=== PATIENT | male | born 1965 | race African-American/Black ===

== ENCOUNTER 2022-01-14 08:47 | Emergency (ER) | payer MEDICAID, SELFPAY ==
[2022-01-14 09:03] VITALS: BP 153/86; PULSE 80; RESP 16; TEMP 36.7; O2SAT 97; BMI 27.1
[2022-01-14 09:13] VITALS: BP 153/86; PULSE 74; RESP 16; O2SAT 96
--- NOTE | 2022-01-14 09:14 | W.ED.NEUROSD ---
HPI - Neuro Symptoms/Deficit General: Chief Complaint: General Medical Stated Complaint: POSSIBLE CVA Time Seen by Provider: 01/14/22 08:50 Source: patient Mode of arrival: ambulatory Limitations: no limitations History of Present Illness: 56-year-old male presents emergency room via EMS. He woke up he is feeling weak on the right side last known well was around 9 last night. Patient was disoriented he had significant dysarthria as well as the right-sided weakness on arrival. Initially is not able to give much history. Patient is at [facility] as an inpatient resident. He denies any chest pain or shortness of breath. He is evasive as to the reason he is at [facility]. Onset (ago): hour(s) (24) Time: 08:47 Last Observed Normal: 21:00 Location: speech, right face, right arm and left leg History of same: Yes Severity: moderate Quality: weak, numb and tingling Relieving factors: none Exacerbating factors: none On Anticoagulants: No Associated symptoms: Deny chest pain, cough, diaphoresis, fevers/chills, headache(s), anorexia, malaise, nausea, seizures, short of breath, syncope, tingling, vertigo, vomiting or weakness Treatments Prior to Arrival: none Review of Systems Const: Denies: fever(s), chills, malaise or diaphoresis ENMT: Denies: throat pain, ear or mastoid pain, nasal discharge or nasal congestion Card: Denies: chest pain or syncope Resp: Denies: dyspnea, productive cough or non-productive cough GI: Denies: nausea or vomiting : Denies: flank pain, dysuria, urinary frequency or urinary urgency Skin/Breast: Denies: rash or pruritus Neuro: Denies: headache(s) or vertigo [facility] ED PFSH: Medical History CVA (cerebral vascular accident) HTN (hypertension) Social History Smoking and tobacco status: current every day smoker Alcohol intake: former NIH stroke score NIHSS: Level Of Consciousness - 1a: 1 Level Of Consciousness Questions - 1b: Both Correct Level Of Consciousness Commands - 1c: Both Correct Best Gaze - 2: Normal Visual [place] - 3: No Visual Loss Facial Palsy - 4: Minor Paralysis Motor Arm Right - 5: Drift Motor Arm Left - 5: No Drift Motor Leg Right - 6: Effort Against [place] Motor Leg Left - 6: No Drift Limb Ataxia - 7: Present In Two Limbs Sensory - 8: Mild To Moderate Loss Best Language - 9: No Aphasia Dysarthia - 10: Mild/Moderate Dysarthia Extinction And Inattention - 11: 0 Score: Total Score: 9 Physical Exam Const: GENERAL APPEARANCE: lethargic NUTRITIONAL APPEARANCE: obese ORIENTATION/CONSCIOUSNESS: Yes lethargic HENMT: COMMON NORMALS: normocephalic, atraumatic and hearing grossly normal bilaterally HEAD & SCALP: normocephalic and atraumatic Neck/C-Spine: COMMON NORMALS: no JVD Resp: COMMON NORMALS: normal respiratory effort, No retractions, No use of accessory muscles and clear to auscultation bilaterally AUSCULTATION: clear to auscultation bilaterally Cardio: COMMON NORMALS: no JVD, regular rate, regular rhythm and No murmurs present (Cardio) RATE: regular rate RHYTHM: regular rhythm GI: COMMON NORMALS: Soft to palpation and No hepatosplenomegaly present AUSCULTATION: Yes normoactive bowel sounds PALPATION: Yes Soft to palpation, No Tenderness to palpation present (GI), No Guarding due to palpation present (GI) and Yes No hepatosplenomegaly present Extremity: COMMON NORMALS: normal to inspection, capillary refill normal, no clubbing, cyanosis or edema, no calf tenderness and no pedal edema Neuro: SENSORIUM/ORIENTATION: Yes lethargic Skin: COMMON NORMALS: no rashes or lesions noted GENERAL SKIN EXAM: no rashes or lesions noted Course Vital Signs: Vital signs: Vital Signs Temperature 98.1 F 01/14/22 09:03 Pulse Rate 74 01/14/22 09:13 Respiratory Rate 16 01/14/22 09:13 Blood Pressure 153/86 01/14/22 09:13 Pulse Oximetry 96 01/14/22 09:13 MDM - Neuro Symptoms/Deficit Medical Decision Making Work-up was in progress and patient refused any further evaluation. He became much more awake and responsive all of his deficits resolved. I was unable to convince him otherwise expressed to my concern that he may be having a stroke and that though most of his symptoms have resolved and would now be classified as a TIA he would be at risk for further episodes. There are old infarcts on his CT of his head. He refuses and is adamant that he wants to leave and was unable to dissuade him encourage the patient to reconsider and advised him that if at any point he did want to come back we would happily see him back and complete the evaluation. Patient left AMA Medical Records I reviewed the patient's medical records. Lab Data I reviewed the patient's lab results. : 01/14/22 09:29 01/14/22: Radiology Impressions Head CT 01/14/22:15 IMPRESSION: 1. No acute intracranial hemorrhage or edema. 2. Prior infarcts in the LEFT caudate head and basal ganglia. 3. Mild cerebral atrophy and moderate small vessel ischemic changes. Laboratory Results WBC 9.5 10^3/uL (4.0-10.0) 01/14/22: RBC 7.24 10^6/uL (4.1-5.3) H 01/14/22: Hgb 16.9 g/dL (11.7-16.6) H 01/14/22: Hct 54.6 % (42.0-52.0) H 01/14/22: MCV 75.4 fl (80-94) L 01/14/22: MCH 23.3 pg (28.0-34.0) L 01/14/22: MCHC 31.0 g/dL (30.0-36.0) 01/14/22: RDW 16.7 % (12.1-15.1) H 01/14/22: Plt Count 167 10^3/cmm (130-400) 01/14/22: MPV 11.3 fL (7.4-10.4) H 01/14/22: Neut % (Auto) 71.6 % 01/14/22: Lymph % (Auto) 20.2 % 01/14/22: Dillon % (Auto) 4.8 % 01/14/22: Eos % (Auto) 2.3 % 01/14/22: Baso % (Auto) 0.4 % 01/14/22: Neut # (Auto) 6.81 10^3/uL (1.8-7.7) 01/14/22 09:29 Lymph # (Auto) 1.9 10^3/uL (0.8-4.8) 01/14/22 09: Dillon # (Auto) 0.5 10^3/uL (0.2-0.9) 01/14/22 09:29 Eos # (Auto) 0.2 10^3/uL (0.0-0.8) 01/14/22 09: Baso # (Auto) 0.0 10^3/uL (0.0-0.1) 01/14/22 09: Nucleated RBC % (auto) 0 % 01/14/22: Nucleated RBCs # 0.0 /100WBC 01/14/22: PT 12.50 SECONDS (12.1-14.9) 01/14/22 09: INR 0.91 (0.8-1.2) 01/14/22: APTT 24.0 SECONDS (23.9-36.7) 01/14/22 09:29 Sodium 141 mmol/L (136-145) 01/14/22 09: Potassium 4.0 mmol/L (3.5-5.1) 01/14/22 09: Chloride 101 mmol/L (98-107) 01/14/22 09: Carbon Dioxide 28 mmol/L (22-29) 01/14/22 09: Anion Gap 16.0 (5-19) 01/14/22 09: BUN 16 mg/dL (6-20) 01/14/22 09: Creatinine 1.0 mg/dL (0.7-1.2) 01/14/22 09: GFR Calculation 92.9 mL/min (90-130) 01/14/22: Glucose 135 mg/dL (65-115) H 01/14/22 09: POC Glucose 133 mg/dL (70-110) H 01/14/22: Calculated Osmolality 295 mOsm/kg (285-295) 01/14/22: Calcium 9.3 mg/dL (8.5-10.5) 01/14/22 09: Total Bilirubin 0.5 mg/dL (0.15-1.2) 01/14/22 09:29 AST 35 U/L (0-40) 01/14/22 09:29 ALT 83 U/L (0-41) H 01/14/22 09:29 Alkaline Phosphatase 91 IU/L (40-130) 01/14/22 09:29 Total Protein 7.3 g/dL (6.6-8.7) 01/14/22 09:29 Albumin 4.7 g/dL (3.5-5.2) 01/14/22 09:29 Globulin 2.6 g/dL (1.3-4.6) 01/14/22 09:29 Discharge Plan Discharge Patient Disposition: Left Against Medical Advice Clinical Impression: TIA (transient ischemic attack), HTN (hypertension) Condition: Stable Coding Level of Care Code ED Backend Python Developer for Moses Fwd Exam Comprehensive
--- NOTE | 2022-01-14 09:15 | CT_ITS ---
WS: [id number] CT HEAD NONCONTRAST HISTORY: Symptoms of Acute Stroke TECHNIQUE: Contiguous axial imaging performed through the brain in 2.5 mm imaging. Bone and soft tiss ue windows. Sagittal and coronal reformats reviewed. All CT scans at [facility] use at least one of these dose optimization techniques: automated exposure control; mA and/or kV adjustment per pa tient size (includes targeted exams where dose is matched to clinical indication); or iterative recon struction. DLP: 975.96 mGy-cm. COMPARISON: None available. No acute intracranial hemorrhage, midline shift or mass effect. Mild atrophy and moderate small vessel ischemic changes. There is a prior infarct involving the LEFT caudate head and the basal ganglia with encephalomalacia and extra-axial dilatation of the lateral ve ntricle. Ventricles: Normal size with no hydrocephalus. Paranasal sinuses: As visualized are clear. Mastoid air cells: Well pneumatized. Calvarium and scalp: Skull is intact with no soft tissue edema or swelling. CT/CT head wo con* [id number] IMPRESSION: 1. No acute intracranial hemorrhage or edema. 2. Prior infarcts in the LEFT caudate head and basal ganglia. 3. Mild cerebral atrophy and moderate small vessel ischemic changes.
--- NOTE | 2022-01-14 09:15 | ECG_ITS ---
[facility] Test Date: 2022-01-14 Pat Name: Adam Morales Department: Room: Gender: Male Facilities Flight Check Pilot: : 1965 Requested By: Ricky Loza Order Number: [id number] [place] MD: Rasheed Donis M.D. Measurements Intervals [place] Rate: 72 P: 67 [place]: 177 QRS: 50 QRSD: 85 T: 49 QT: 363 QTc: 397 Interpretive Statements SINUS RHYTHM POSSIBLE RIGHT VENTRICULAR CONDUCTION DELAY [RSR (QR) IN V1/V2] NONSPECIFIC T-WAVE ABNORMALITY No previous ECG available for comparison Electronically Signed On 01-14-2022 23:22:32 CDT by Rasheed Donis M.D. [email or web address]
[2022-01-14 09:35] LABS: Basophils % 0.4 %; Eosinophils # 0.2 10^3/uL (0.0-0.8); Eosinophils % 2.3 %; Hematocrit 54.6 % (42.0-52.0); Hemoglobin 16.9 g/dL (11.7-16.6); Lymphocytes # 1.9 10^3/uL (0.8-4.8); Lymphocytes % 20.2 %; Mean Corpuscular Hemoglobin 23.3 pg (28.0-34.0); Mean Corpuscular Volume 75.4 fl (80-94); Mean Platelet Volume 11.3 fL (7.4-10.4); Monocytes # 0.5 10^3/uL (0.2-0.9); Monocytes % 4.8 %; Neutrophils # 6.81 10^3/uL (1.8-7.7); Neutrophils % 71.6 %; Nucleated Red Blood Cells % 0 %; Platelet Count 167 10^3/cmm (130-400); Red Blood Count 7.24 10^6/uL (4.1-5.3); Red Cell Distribution Width 16.7 % (12.1-15.1); White Blood Count 9.5 10^3/uL (4.0-10.0)
[2022-01-14 09:57] LABS: Alanine Aminotransferase 83 U/L (0-41); Albumin Level 4.7 g/dL (3.5-5.2); Alkaline Phosphatase 91 IU/L (40-130); Aspartate Amino Transferase 35 U/L (0-40); Blood Urea Nitrogen 16 mg/dL (6-20); Calcium 9.3 mg/dL (8.5-10.5); Carbon Dioxide 28 mmol/L (22-29); Chloride 101 mmol/L (98-107); Globulin 2.6 g/dL (1.3-4.6); Glomerular Filtration Rate 92.9 mL/min (90-130); Glucose 135 mg/dL (65-115); Osmolality Calculated 295 mOsm/kg (285-295); Sodium 141 mmol/L (136-145); Total Bilirubin 0.5 mg/dL (0.15-1.2); Total Protein 7.3 g/dL (6.6-8.7)
[2022-01-14 10:03] LABS: INR 0.91 (0.8-1.2)
[2022-01-15 08:25] LABS: Glucose Point of Care 133 mg/dL (70-110)
== END 2022-01-14 10:21 | disposition left against medical advice (07) ==
PROVIDERS: Emergency Provider Family Medicine
DX: G45.9 Transient cerebral ischemic attack, unspecified (principal); F17.210 Nicotine dependence, cigarettes, uncomplicated; Z86.73 Personal history of transient ischemic attack (TIA), and cerebral infarction without residual deficits; I10 Essential (primary) hypertension; Z53.29 Procedure and treatment not carried out because of patient's decision for other reasons
CPT/HCPCS: 36416; 70450; 80053; 82962; 85025; 85610; 85730; 93005; 99283

== ENCOUNTER 2022-02-05 14:41 | Inpatient (IN) | payer MEDICAID, SELFPAY ==
[2022-02-05] VITALS (18 sets, daily range): BP systolic 114–159; BP diastolic 71–96; PULSE 77–99; RESP 12–23; TEMP 36.8–37; O2SAT 94–98
[2022-02-05 15:33] LABS: Add Urine Microscopic? NO; Charge for UA Resulting for Rev
[2022-02-05 15:40] LABS: Urine Appearance Clear (CLEAR); Urine Color Straw (Yellow); pH Urine 6 (5-7)
[2022-02-05 15:41] LABS: Bilirubin Urine Neg (Negative); Blood Urine Neg (Negative); Glucose Urine UA 4+ (Normal); Ketones Urine Negative (Negative); Leukocyte Esterase Urine Negative (Negative); Nitrate Urine Negative (Negative); Protein Urine Neg (Negative); Specific Gravity, Urine 1.005 (1.005-1.030); Urobilinogen Urine Norm (Negative)
--- NOTE | 2022-02-05 15:43 | CTR_ITS ---
PROCEDURE INFORMATION: Exam: CT Head Without Contrast Exam date and time: 02/05/2022 4:25 PM Age: 56 years old Clinical indication: Altered mental status/memory loss; Additional info: Confusion TECHNIQUE: Imaging protocol: Computed tomography of the head without contrast. Radiation optimization: All CT scans at this facility use at least one of these dose optimization techniques: automated exposure control; mA and/or kV adjustment per patient size (includes targeted exams where dose is matched to clinical indication); or iterative reconstruction. COMPARISON: CT head wo con* [id number] 01/14/2022 8:49 AM RADIATION DOSE METRICS: Total DLP (mGy-cm): 893.81 FINDINGS: Brain: There is moderate cerebral atrophy. Pre-existing areas of encephalomalacia in the left basal ganglia stable from prior. No acute brain ischemia identified. Negative for intracranial hemorrhage. No midline shift of the brain. No mass effect on the brain. [place] matter and white matter interfaces are preserved. Cerebral ventricles: No ventriculomegaly. Paranasal sinuses: Visualized sinuses are unremarkable. No fluid levels. Mastoid air cells: Visualized mastoid air cells are well aerated. Bones/joints: Unremarkable. No acute fracture. Soft tissues: Unremarkable. CT/CT head wo con* [id number] IMPRESSION: Negative for acute intracranial abnormality.
--- NOTE | 2022-02-05 16:01 | W.ED.AMS ---
Documented by User: NATA Carroll 02/07/22 08:59 HPI - Altered Mental Status General: Chief Complaint: Altered Mental Status Stated Complaint: Cant control bowels, UTI, confusion Time Seen by Provider: 02/05/22 15:58 History of Present Illness: Patient presents with stating that he urinated on himself earlier today and had a loss control of bowel x1 yesterday. Patient said he had a stroke back in 2016. Said his right side was affected. Said he Has ambulate with a walker or a cane. Denies any recent fever chills nausea or vomiting. Denies any other serious health problems. Patient states he is not diabetic. Has family history of diabetes. Has had increased thirst and urination. Patient denies any neurological changes. Associated symptoms: Deny depression Review of Systems Narrative: CVA back 2016. No new neurological symptoms. Const: Denies: fever(s) or chills Eyes: Reports: blurry vision (Intermittent); Denies: eye discomfort ENMT: Denies: throat pain Card: Denies: chest pain or dyspnea on exertion Resp: Denies: dyspnea or non-productive cough GI: Reports: abdominal pain and other (Said he was incontinent urine and stool x1 yesterday and today.) : Reports: urinary frequency and urinary dribbling; Denies: difficulty urinating Musc: Denies: joint pain Skin/Breast: Denies: rash Neuro: Denies: headache(s) Psych: Denies: anxiety or depression Adrian/Lymph: Denies: easy bruising or enlarged lymph nodes [facility] ED PFSH: Medical History CVA (cerebral vascular accident) HTN (hypertension) Social History Smoking and tobacco status: current every day smoker Alcohol intake: former Physical Exam Const: COMMON NORMALS: no acute distress, average body habitus and patient oriented x3 OTHER: Patient is able to converse freely with me and answer all questions appropriately Eye: COMMON NORMALS: Equal, round and reactive pupils present PUPIL: Yes Equal, round and reactive pupils present Resp: COMMON NORMALS: normal respiratory effort Cardio: COMMON NORMALS: regular rate and regular rhythm RATE: regular rate RHYTHM: regular rhythm Neuro: COMMON NORMALS: patient oriented x3 SPEECH: speech normal Psych: COMMON NORMALS: mental status grossly normal Course Vital Signs: Vital signs: Vital Signs Temperature 98.6 F 02/05/22 20:00 Pulse Rate 90 02/06/22 13:37 Respiratory Rate 15 02/06/22 13:30 Blood Pressure 136/90 02/06/22 13:30 Pulse Oximetry 96 02/06/22 13:37 MDM - Altered Mental Status Medical Decision Making transfer care to Dr. Castellanos after discussion Lab Data : 02/05/22 16:05 02/06/22 05:[address] 02/05/22 15:43 IMPRESSION: Negative for acute intracranial abnormality. Laboratory Results WBC 8.8 10^3/uL (4.0-10.0) 02/05/22 16:05 RBC 6.93 10^6/uL (4.1-5.3) H 02/05/22 16:05 Hgb 16.0 g/dL (11.7-16.6) 02/05/22 16:05 Hct 51.8 % (42.0-52.0) 02/05/22 16:05 MCV 74.7 fl (80-94) L 02/05/22 16:05 MCH 23.1 pg (28.0-34.0) L 02/05/22 16:05 MCHC 30.9 g/dL (30.0-36.0) 02/05/22 16:05 RDW 15.2 % (12.1-15.1) H 02/05/22 16:05 Plt Count 223 10^3/cmm (130-400) 02/05/22 16:05 MPV 11.8 fL (7.4-10.4) H 02/05/22 16:05 Neut % (Auto) 70.7 % 02/05/22 16:05 Lymph % (Auto) 21.1 % 02/05/22 16:05 Blount % (Auto) 5.5 % 02/05/22 16:05 Eos % (Auto) 1.9 % 02/05/22 16:05 Baso % (Auto) 0.5 % 02/05/22 16:05 Neut # (Auto) 6.19 10^3/uL (1.8-7.7) 02/05/22 16:05 Lymph # (Auto) 1.9 10^3/uL (0.8-4.8) 02/05/22 16:05 Blount # (Auto) 0.5 10^3/uL (0.2-0.9) 02/05/22 16:05 Eos # (Auto) 0.2 10^3/uL (0.0-0.8) 02/05/22 16:05 Baso # (Auto) 0.0 10^3/uL (0.0-0.1) 02/05/22 16:05 Nucleated RBC % (auto) 0 % 02/05/22 16:05 Nucleated RBCs # 0.0 /100WBC 02/05/22 16:05 Specimen Type Arterial 02/05/22 17:10 Sample Site Radial, right 02/05/22 17:10 ABG pH 7.41 (7.35-7.45) 02/05/22 17:10 ABG pCO2 38.2 mmHg (35-45) 02/05/22 17:10 ABG pO2 82.8 mmHg (80.0-100.0) 02/05/22 17:10 ABG HCO3 24.4 mmol/L (22-26) 02/05/22 17:10 ABG Base Excess 0.1 mmol/L (-2.0-2.0) 02/05/22 17:10 Rosendo Test Pos 02/05/22 17:10 Hematocrit 51.6 % (42-52) 02/05/22 17:10 O2 Delivery Device Nc 02/05/22 17:10 O2 Liters/Min 2.0 % 02/05/22 17:10 Outdoor Power Equipment Mechanic ID Stephane 02/05/22 17:10 Sodium 126 mmol/L (136-145) L 02/05/22 16:05 Potassium 5.1 mmol/L (3.5-5.1) 02/05/22 16:05 Chloride 89 mmol/L (98-107) L 02/05/22 16:05 Carbon Dioxide 21 mmol/L (22-29) L 02/05/22 16:05 Anion Gap 21.1 (5-19) H 02/05/22 16:05 BUN 24 mg/dL (6-20) H 02/05/22 16:05 Creatinine 1.4 mg/dL (0.7-1.2) H 02/05/22 16:05 GFR Calculation 63.0 mL/min (90-130) L 02/05/22 16:05 Glucose 814 mg/dL (65-115) H* 02/05/22 16:05 Serum Osmolality 311 mOsm/kg (278-305) H 02/05/22 17:11 Calculated Osmolality 306 mOsm/kg (285-295) H 02/05/22 16:05 Lactic Acid 2.5 mmol/L (0.5-2.2) H 02/05/22 17:11 Calcium 9.6 mg/dL (8.5-10.5) 02/05/22 16:05 Magnesium 2.4 mg/dL (1.7-2.3) H 02/05/22 16:05 Total Bilirubin 0.4 mg/dL (0.15-1.2) 02/05/22 16:05 AST 22 U/L (0-40) 02/05/22 16:05 ALT 37 U/L (0-41) 02/05/22 16:05 Alkaline Phosphatase 160 IU/L (40-130) H 02/05/22 16:05 Total Protein 7.5 g/dL (6.6-8.7) 02/05/22 16:05 Albumin 4.4 g/dL (3.5-5.2) 02/05/22 16:05 Globulin 3.1 g/dL (1.3-4.6) 02/05/22 16:05 TSH 1.20 uIU/mL (0.27-4.20) 02/05/22 16:05 Urine Color Straw (Yellow) 02/05/22 15:17 Urine Appearance Clear (CLEAR) 02/05/22 15:17 Urine pH 6 (5-7) 02/05/22 15:17 Ur Specific Leola 1.005 (1.005-1.030) 02/05/22 15:17 Urine Protein Neg (Negative) 02/05/22 15:17 Urine Glucose (UA) 4+ (Normal) H 02/05/22 15:17 Urine Ketones Negative (Negative) 02/05/22 15:17 Urine Blood Neg (Negative) 02/05/22 15:17 Urine Nitrate Negative (Negative) 02/05/22 15:17 Urine Bilirubin Neg (Negative) 02/05/22 15:17 Urine Urobilinogen Norm mg/dL (Negative) 02/05/22 15:17 Ur Leukocyte Esterase Negative (Negative) 02/05/22 15:17 Serum Ketones Negative (Negative) 02/05/22 17:11 Discharge Plan Discharge Patient Disposition: Admitted As Inpatient Admit Provider: Michael Mckenzie Clinical Impression: Diabetes mellitus, new onset, Hyperglycemia Condition: Stable Discharge Diet: Diabetic Discharge Activity: Resume usual activity Sign Out Sign Out Data: Patient Sign Out occurred on 02/05/22 at 16:56. Patient's care was discussed, and care was transferred from to Fox Castellanos MD. Coding Level of Care Code ED Drum Attendant for Chg Fwd Exam Detailed Documented by User: Fox Castellanos MD 02/10/22 03:04 HPI - Altered Mental Status General: Chief Complaint: Altered Mental Status Stated Complaint: Cant control bowels, UTI, confusion Time Seen by Provider: 02/05/22 15:58 PFSH ED PFSH: Medical History CVA (cerebral vascular accident) HTN (hypertension) Social History Smoking and tobacco status: current every day smoker Alcohol intake: former Course Vital Signs: Vital signs: Vital Signs Temperature 98.6 F 02/05/22 20:00 Pulse Rate 90 02/06/22 13:37 Respiratory Rate 15 02/06/22 13:30 Blood Pressure 136/90 02/06/22 13:30 Pulse Oximetry 96 02/06/22 13:37 MDM - Altered Mental Status Medical Decision Making transfer care to Dr. Castellanos after discussion Patient discussed with Aniceot Martin SHOE SALESMAN. I have reviewed documentation. I reperformed simpson portions of E/M and personally reevaluated the patient. In summary 56-year-old gentleman apparently with new onset severe hyperglycemia concerning for HHS. Initiated on IV fluids and insulin drip. Admitted to ICU for further management. Fox Castellanos MD Emergency Medicine Lab Data : 02/05/22 16:05 02/06/22 05:[address] 02/05/22 15:43 IMPRESSION: Negative for acute intracranial abnormality. Laboratory Results WBC 8.8 10^3/uL (4.0-10.0) 02/05/22 16:05 RBC 6.93 10^6/uL (4.1-5.3) H 02/05/22 16:05 Hgb 16.0 g/dL (11.7-16.6) 02/05/22 16:05 Hct 51.8 % (42.0-52.0) 02/05/22 16:05 MCV 74.7 fl (80-94) L 02/05/22 16:05 MCH 23.1 pg (28.0-34.0) L 02/05/22 16:05 MCHC 30.9 g/dL (30.0-36.0) 02/05/22 16:05 RDW 15.2 % (12.1-15.1) H 02/05/22 16:05 Plt Count 223 10^3/cmm (130-400) 02/05/22 16:05 MPV 11.8 fL (7.4-10.4) H 02/05/22 16:05 Neut % (Auto) 70.7 % 02/05/22 16:05 Lymph % (Auto) 21.1 % 02/05/22 16:05 Blount % (Auto) 5.5 % 02/05/22 16:05 Eos % (Auto) 1.9 % 02/05/22 16:05 Baso % (Auto) 0.5 % 02/05/22 16:05 Neut # (Auto) 6.19 10^3/uL (1.8-7.7) 02/05/22 16:05 Lymph # (Auto) 1.9 10^3/uL (0.8-4.8) 02/05/22 16:05 Blount # (Auto) 0.5 10^3/uL (0.2-0.9) 02/05/22 16:05 Eos # (Auto) 0.2 10^3/uL (0.0-0.8) 02/05/22 16:05 Baso # (Auto) 0.0 10^3/uL (0.0-0.1) 02/05/22 16:05 Nucleated RBC % (auto) 0 % 02/05/22 16:05 Nucleated RBCs # 0.0 /100WBC 02/05/22 16:05 Specimen Type Arterial 02/05/22 17:10 Sample Site Radial, right 02/05/22 17:10 ABG pH 7.41 (7.35-7.45) 02/05/22 17:10 ABG pCO2 38.2 mmHg (35-45) 02/05/22 17:10 ABG pO2 82.8 mmHg (80.0-100.0) 02/05/22 17:10 ABG HCO3 24.4 mmol/L (22-26) 02/05/22 17:10 ABG Base Excess 0.1 mmol/L (-2.0-2.0) 02/05/22 17:10 Rosendo Test Pos 02/05/22 17:10 Hematocrit 51.6 % (42-52) 02/05/22 17:10 O2 Delivery Device Nc 02/05/22 17:10 O2 Liters/Min 2.0 % 02/05/22 17:10 Outdoor Power Equipment Mechanic ID Stephane 02/05/22 17:10 Sodium 126 mmol/L (136-145) L 02/05/22 16:05 Potassium 5.1 mmol/L (3.5-5.1) 02/05/22 16:05 Chloride 89 mmol/L (98-107) L 02/05/22 16:05 Carbon Dioxide 21 mmol/L (22-29) L 02/05/22 16:05 Anion Gap 21.1 (5-19) H 02/05/22 16:05 BUN 24 mg/dL (6-20) H 02/05/22 16:05 Creatinine 1.4 mg/dL (0.7-1.2) H 02/05/22 16:05 GFR Calculation 63.0 mL/min (90-130) L 02/05/22 16:05 Glucose 814 mg/dL (65-115) H* 02/05/22 16:05 Serum Osmolality 311 mOsm/kg (278-305) H 02/05/22 17:11 Calculated Osmolality 306 mOsm/kg (285-295) H 02/05/22 16:05 Lactic Acid 2.5 mmol/L (0.5-2.2) H 02/05/22 17:11 Calcium 9.6 mg/dL (8.5-10.5) 02/05/22 16:05 Magnesium 2.4 mg/dL (1.7-2.3) H 02/05/22 16:05 Total Bilirubin 0.4 mg/dL (0.15-1.2) 02/05/22 16:05 AST 22 U/L (0-40) 02/05/22 16:05 ALT 37 U/L (0-41) 02/05/22 16:05 Alkaline Phosphatase 160 IU/L (40-130) H 02/05/22 16:05 Total Protein 7.5 g/dL (6.6-8.7) 02/05/22 16:05 Albumin 4.4 g/dL (3.5-5.2) 02/05/22 16:05 Globulin 3.1 g/dL (1.3-4.6) 02/05/22 16:05 TSH 1.20 uIU/mL (0.27-4.20) 02/05/22 16:05 Urine Color Straw (Yellow) 02/05/22 15:17 Urine Appearance Clear (CLEAR) 02/05/22 15:17 Urine pH 6 (5-7) 02/05/22 15:17 Ur Specific Leola 1.005 (1.005-1.030) 02/05/22 15:17 Urine Protein Neg (Negative) 02/05/22 15:17 Urine Glucose (UA) 4+ (Normal) H 02/05/22 15:17 Urine Ketones Negative (Negative) 02/05/22 15:17 Urine Blood Neg (Negative) 02/05/22 15:17 Urine Nitrate Negative (Negative) 02/05/22 15:17 Urine Bilirubin Neg (Negative) 02/05/22 15:17 Urine Urobilinogen Norm mg/dL (Negative) 02/05/22 15:17 Ur Leukocyte Esterase Negative (Negative) 02/05/22 15:17 Serum Ketones Negative (Negative) 02/05/22 17:11 Critical Care Time Critical Care Time: Critical Care Time: Yes Total Critical Care Time: 45 Attestation: Due to a high probability of clinically significant, possibly life threatening deterioration, the patient required my highest level of attention and preparedness to intervene emergently and I personally spent this critical care time directly and personally managing the patient. This critical care time included obtaining a history; examining the patient; pulse oximetry; ordering and review of laboratory and imaging studies; arranging urgent treatment with development of a management plan; evaluation of patient's response to treatment; frequent reassessment; and, discussions with other providers as applicable. It was exclusive of separately billable procedures. Primary system involved is endocrine Discharge Plan Discharge Patient Disposition: Admitted As Inpatient Admit Provider: Michael Mckenzie Clinical Impression: Diabetes mellitus, new onset, Hyperglycemia Condition: Stable Discharge Diet: Diabetic Discharge Activity: Resume usual activity Sign Out Sign Out Data: Patient Sign Out occurred on 02/05/22 at 16:56. Patient's care was discussed, and care was transferred from to Fox Castellanos MD. Coding Level of Care Code ED Drum Attendant for Chg Fwd Exam Detailed
[2022-02-05 16:10] LABS: Basophils % 0.5 %; Eosinophils # 0.2 10^3/uL (0.0-0.8); Eosinophils % 1.9 %; Hematocrit 51.8 % (42.0-52.0); Lymphocytes # 1.9 10^3/uL (0.8-4.8); Lymphocytes % 21.1 %; Mean Corpuscular HGB Conc 30.9 g/dL (30.0-36.0); Mean Corpuscular Hemoglobin 23.1 pg (28.0-34.0); Mean Corpuscular Volume 74.7 fl (80-94); Mean Platelet Volume 11.8 fL (7.4-10.4); Monocytes # 0.5 10^3/uL (0.2-0.9); Monocytes % 5.5 %; Neutrophils # 6.19 10^3/uL (1.8-7.7); Neutrophils % 70.7 %; Nucleated Red Blood Cells % 0 %; Platelet Count 223 10^3/cmm (130-400); Red Blood Count 6.93 10^6/uL (4.1-5.3); Red Cell Distribution Width 15.2 % (12.1-15.1); White Blood Count 8.8 10^3/uL (4.0-10.0)
[2022-02-05 16:39] LABS: Alanine Aminotransferase 37 U/L (0-41); Albumin Level 4.4 g/dL (3.5-5.2); Alkaline Phosphatase 160 IU/L (40-130); Aspartate Amino Transferase 22 U/L (0-40); Blood Urea Nitrogen 24 mg/dL (6-20); Calcium 9.6 mg/dL (8.5-10.5); Carbon Dioxide 21 mmol/L (22-29); Chloride 89 mmol/L (98-107); Globulin 3.1 g/dL (1.3-4.6); Sodium 126 mmol/L (136-145); Total Bilirubin 0.4 mg/dL (0.15-1.2); Total Protein 7.5 g/dL (6.6-8.7)
[2022-02-05 16:47] LABS: Osmolality Calculated 306 mOsm/kg (285-295)
[2022-02-05 16:48] LABS: Anion Gap 21.1 (5-19); Potassium 5.1 mmol/L (3.5-5.1)
[2022-02-05 16:49] LABS: Glucose 814 mg/dL (65-115)
[2022-02-05] MEDS: sodium chloride 0.9% 1,000 ML 999 ML IV (17:07)
[2022-02-05 17:24] LABS: ABG PCO2 38.2 mmHg (35-45); ABG PH Result 7.41 (7.35-7.45); Arterial Blood Gas Hematocrit 51.6 % (42-52); Base Excess ABG 0.1 mmol/L (-2.0-2.0); Blood Gas Allen Test Pos; Blood Gas Sample Site Radial, right; Blood Gas Sample Type Arterial; HCO3 ABG 24.4 mmol/L (22-26); Oxygen Device NC; PO2 ABG 82.8 mmHg (80.0-100.0)
--- NOTE | 2022-02-05 17:48 | P.HP_ITS ---
Providers/Chief Complaint Chief Complaint: Cant control bowels, UTI, confusion History of Present Illness Adam Morales is a 56 year old male with PMH of HTN, CVA,came in with c/o that he urinated on himself earlier today and had a loss control of bowel x1 yesterday.History taking is limited as the patient is not very participative. For most part deny any chest pain,sob,fever,abdominal pain, nausea,vomiting. Upon arrival in the ER pertinent imaging studies done included: C.T Head without contrast :Negative for acute intracranial abnormality. Pertinent Labs : WBC : 8.8 H&H : 16/51 PLT : 223 , Na: 126 , k:5.1 BUN/SCR : 24/1.4 , HCO3: 21, AG : 21 , RBS: 814 , Lactic acid: 2.5 , M.4 AB.41, PCO2: 38,PO2:82 Urine Ketone :Negative. Patient was started on insulin drip in the ER. and also received 1L normal saline bolus. Review of Systems General: Reports: 10 or more systems reviewed and unremarkable except in HPI and below Narrative: ROS is limited as the patient is not very participative Const: Denies: fever(s) Card: Denies: dyspnea on exertion GI: Denies: abdominal pain, nausea, vomiting, diarrhea or constipation : Denies: flank pain Musc: Denies: back pain, extremity pain or extremity swelling Neuro: Denies: headache(s) Medications/Allergies Home Medications Medication Instructions Recorded Confirmed Last Taken Type aspirin 81 mg tablet,delayed 81 mg PO DAILY 02/05/22 02/05/22 02/05/22 History release atorvastatin 40 mg tablet 40 mg PO DAILY 02/05/22 02/05/22 02/04/22 History clopidogrel 75 mg tablet 75 mg PO DAILY 02/05/22 02/05/22 02/05/22 History diltiazem HCl 120 mg 120 mg PO DAILY 02/05/22 02/05/22 02/05/22 History capsule,extended release 24 hr gabapentin 100 mg capsule 100 mg PO BID 02/05/22 02/05/22 02/05/22 History hydrochlorothiazide 25 mg tablet 25 mg PO DAILY 02/05/22 02/05/22 02/05/22 History lisinopril 20 mg tablet 20 mg PO DAILY 0502/05/22 02/05/22 History olanzapine 10 mg tablet 10 mg PO BEDTIME 02/05/22 02/05/22 02/04/22 History tramadol 50 mg tablet 50 mg PO Q6H PRN 02/05/22 02/05/22 Unknown History venlafaxine 75 mg capsule,extended 75 mg PO DAILY 02/05/22 02/05/22 02/05/22 History release 24 hr Allergies Allergy/AdvReac Type Severity Reaction Status Date / Time No Known Allergies Allergy Verified 02/05/22 15:02 PFSH Acute PFSH: Medical History CVA (cerebral vascular accident) HTN (hypertension) Social History Smoking and tobacco status: current every day smoker Alcohol intake: former Vitals/I&O/Wt Last Vital Signs Temp 98.2 F 02/05/22 14:57 Pulse 99 02/05/22 14:57 Resp 20 H 02/05/22 14:57 BP 159/92 02/05/22 16:30 Pulse Ox 96 02/05/22 16:30 Weight last 48 hrs Weight 92.533 kg Physical Exam Narrative: NAD ,Alert,awake,oriented to self,place and knows which year is this. HENMT: COMMON NORMALS: normocephalic and atraumatic HEAD & SCALP: normocephalic and atraumatic Chest: CHEST: Yes Symmetrical chest wall rise Resp: COMMON NORMALS: clear to auscultation bilaterally EFFORT & INSPECTION: Yes symmetric chest movement AUSCULTATION: clear to auscultation bilaterally Cardio: COMMON NORMALS: regular rate, regular rhythm, S1 normal heart sound present, S2 normal heart sound present, No gallops present (Cardio), No murmurs present (Cardio), No rub (Cardio) and Peripheral pulses 2+ throughout RATE: regular rate RHYTHM: regular rhythm HEART SOUNDS: S1 normal heart sound present and S2 normal heart sound present PERIPHERAL PULSES: Peripheral pulses 2+ throughout GI: COMMON NORMALS: Normal to inspection, nondistended, normoactive bowel sounds present, Soft to palpation, non-tender, No hepatosplenomegaly present and no masses AUSCULTATION: Yes normoactive bowel sounds PALPATION: Yes Soft to palpation and Yes No hepatosplenomegaly present RECTAL EXAM: Yes deferred Extremity: COMMON NORMALS: no clubbing, cyanosis or edema and no pedal edema Data : 02/05/22 16:05 02/06/22 05:24 A&P Assessment and plan (1) HTN (hypertension): Status: Acute (2) Hyperglycemia: Status: Acute (3) Diabetes mellitus, new onset: Status: Acute Plan 56 year old male with PMH of HTN, CVA,came in with c/o that he urinated on himself earlier today and had a loss control of bowel x1 yesterday. Assessment : #Hyperglycemia : #Diabetes #KATERINA ON CKD #HTN #H/OCVA Plan : Currently on insulin drip Monitor FSG Carbohydrate Consistent diet Will transition to Basal,bolus insulin regimen Lipid panel HbA1C Continue I.V Hydration with NS @ 100 CC/HR Monitor BMP Avoid Nephrtoxics Monitor I/O Charting Random Urine Sodium Random Urine Creatinine Code Status :Full code DVT PPX: On Lovenox Attestations Medical Necessity Statement*: Patient needs to be in hospital for the manage ment of hyperglycemia.Anticipated LOS Greater then 2 midnights. Time Spent in Patient Care: Greater than 35 minutes (>than 50% of time spent in counselling and/or direct pt care on unit) . Coding Level of Care Code Acute Marketing Underwriter for Chg Fwd Exam Detailed Diagnoses HTN (hypertension) I10 Hyperglycemia R73.9 Diabetes mellitus, new onset E11.9
[2022-02-05 17:49] LABS: Lactic Sepsis W/Reflex 2.5 mmol/L (0.5-2.2)
[2022-02-05 17:51] LABS: Ketone (Acetest) Serum Negative (Negative)
[2022-02-05 17:59] LABS: Reflex Lactate Order REFLEX LACTIC ORDERD
[2022-02-05 18:06] LABS: Magnesium 2.4 mg/dL (1.7-2.3)
[2022-02-05] MEDS: gabapentin 100 mg Capsule PO (18:14)
[2022-02-05] MEDS: enoxaparin 40 mg/0.4 mL Syringe SUBCUT (18:15)
[2022-02-05 18:44] LABS: Glucose Point of Care 566 mg/dL (70-110)
--- NOTE | 2022-02-05 18:45 | PC.NURSE ---
Patient arrived to ICU from ED at 1830.
[2022-02-05] MEDS: insulin regular-human 250 UNIT in sodium chloride 0.9% 250 ML 15.9 UNIT IV (18:49)
[2022-02-05 19:48] LABS: Glucose Point of Care 333 mg/dL (70-110)
[2022-02-05] MEDS: sodium chloride 0.9% 1,000 ML 100 ML IV (19:57)
[2022-02-05 21:01] LABS: Glucose Point of Care 248 mg/dL (70-110)
[2022-02-05] MEDS: insulin lispro 100 unit/1 mL SUBCUT (21:06)
[2022-02-05] MEDS: insulin glargine 100 units/1 mL 15 UNIT SUBCUT (21:07)
[2022-02-05] MEDS: OLANZapine 10 mg TABLET PO (21:08)
[2022-02-05 21:31] LABS: Blood Urea Nitrogen 22 mg/dL (6-20); Calcium 9.8 mg/dL (8.5-10.5); Carbon Dioxide 23 mmol/L (22-29); Chloride 100 mmol/L (98-107); Glomerular Filtration Rate 83.2 mL/min (90-130); Glucose 267 mg/dL (65-115); Osmolality Calculated 295 mOsm/kg (285-295); Sodium 136 mmol/L (136-145)
[2022-02-05 21:32] LABS: Anion Gap 17.1 (5-19); Potassium 4.1 mmol/L (3.5-5.1)
[2022-02-06] VITALS (26 sets, daily range): BP systolic 105–145; BP diastolic 66–90; PULSE 73–90; RESP 11–22; O2SAT 95–99
[2022-02-06 00:30] LABS: Glucose Point of Care 289 mg/dL (70-110)
[2022-02-06 05:57] LABS: Alanine Aminotransferase 37 U/L (0-41); Albumin Level 3.9 g/dL (3.5-5.2); Alkaline Phosphatase 100 IU/L (40-130); Anion Gap 12.9 (5-19); Aspartate Amino Transferase 20 U/L (0-40); Blood Urea Nitrogen 18 mg/dL (6-20); Calcium 9.1 mg/dL (8.5-10.5); Carbon Dioxide 27 mmol/L (22-29); Chloride 102 mmol/L (98-107); Chol HDL Ratio 6.29 mg/dL (1.0-5.00); Cholesterol 176 mg/dL (0-200); Globulin 2.4 g/dL (1.3-4.6); Glomerular Filtration Rate 75.2 mL/min (90-130); Glucose 269 mg/dL (65-115); HDL Cholesterol 28 mg/dL (60-100); LDL Cholesterol Calculated 99 mg/dL (50-129); LDL HDL Ratio 3.54 RATIO (0.00-3.22); Magnesium 2.1 mg/dL (1.7-2.3); Osmolality Calculated 297 mOsm/kg (285-295); Phosphorus 3.8 mg/dL (2.5-4.5); Potassium 3.9 mmol/L (3.5-5.1); Sodium 138 mmol/L (136-145); Total Bilirubin 0.4 mg/dL (0.15-1.2); Total Protein 6.3 g/dL (6.6-8.7); Triglycerides 245 mg/dL (0-150)
[2022-02-06 06:00] LABS: Lactic Sepsis W/Reflex 1.6 mmol/L (0.5-2.2)
[2022-02-06 06:01] LABS: Estmated Average Glucose 217; Hemoglobin A1C 9.2 % (4.0-6.0)
[2022-02-06] MEDS: sodium chloride 0.9% 1,000 ML 100 ML IV (06:05)
[2022-02-06 07:33] LABS: Glucose Point of Care 265 mg/dL (70-110)
[2022-02-06] MEDS: insulin lispro 100 unit/1 mL SUBCUT ×2 (08:14→11:25)
[2022-02-06] MEDS: venlafaxine ER (24HR) 75 mg Capsule PO (08:15)
[2022-02-06] MEDS: clopidogrel 75 mg Tablet PO (08:16)
[2022-02-06] MEDS: atorvastatin 40 mg Tablet PO (08:16)
[2022-02-06] MEDS: dilTIAZem ER (24HR) 120 mg Capsule PO (08:16)
[2022-02-06] MEDS: gabapentin 100 mg Capsule PO (08:16)
[2022-02-06] MEDS: aspirin 81 mg EC Tablet PO (08:16)
[2022-02-06] MEDS: TRAMadol 50 mg Tablet PO (08:18)
--- NOTE | 2022-02-06 10:39 | PC.NURSE ---
Dr. Mckenzie at bedside, informed this nurse that metfomin will be started and patient will be discharged once arrangements are made, patient advised he need to go to [facility], social service involved
[2022-02-06 11:23] LABS: Glucose Point of Care 262 mg/dL (70-110)
--- NOTE | 2022-02-06 12:46 | PC.NURSE ---
[facility] called, received report, Dr. Mckenzie was notified and to put in discharge orders
--- NOTE | 2022-02-06 13:37 | PM.DCS ---
Discharge Providers Date of Admission: 02/05/22 17:14 Date of Discharge: February 06, 2022 Attending Provider at Admission: Michael Mckenzie MD Attending Provider at Discharge: Michael Mckenzie MD Diagnoses at Discharge Discharge Diagnosis (1) HTN (hypertension): Status: Acute (2) Hyperglycemia: Status: Acute (3) Diabetes mellitus, new onset: Status: Acute Reason for Visit Reason for Visit: Cant control bowels, UTI, confusion Hospital Course Hospital Course Adam Morales is a 56 year old male with PMH of HTN, CVA,came in with c/o? that he urinated on himself earlier today and had a loss control of bowel x1 yesterday.Further work up in the ER revealed that he is hyperglycemic he was admitted for the management of hyperglycemia and was initially placed on insulin drip,later transitioned to basal,bolus insulin. He was newly diagnosed with Diabetes during this hospital stay,HbA1C is 9.2.Patient was also found to have Pre renal KATERINA responded well to I.V Hydration.Patient is being discharged on Metformin 500 MG PO BID.He has agreed to see endocrine as outpatient for further management of disbetes. Patient responded well to above medical management and is being discharged in stable condition.He will continue to follow with his pcp as outpatient. Physical Exam Narrative: NAD ,Alert,awake,oriented to self,place and knows which year is this. Const: COMMON NORMALS: patient oriented x3 HENMT: COMMON NORMALS: normocephalic and atraumatic HEAD & SCALP: normocephalic and atraumatic Chest: CHEST: Yes Symmetrical chest wall rise Resp: COMMON NORMALS: clear to auscultation bilaterally EFFORT & INSPECTION: Yes symmetric chest movement AUSCULTATION: clear to auscultation bilaterally Cardio: COMMON NORMALS: regular rate, regular rhythm, S1 normal heart sound present, S2 normal heart sound present, No gallops present (Cardio), No murmurs present (Cardio), No rub (Cardio) and Peripheral pulses 2+ throughout RATE: regular rate RHYTHM: regular rhythm HEART SOUNDS: S1 normal heart sound present and S2 normal heart sound present PERIPHERAL PULSES: Peripheral pulses 2+ throughout GI: COMMON NORMALS: Normal to inspection, nondistended, normoactive bowel sounds present, Soft to palpation, non-tender, No hepatosplenomegaly present and no masses AUSCULTATION: Yes normoactive bowel sounds PALPATION: Yes Soft to palpation and Yes No hepatosplenomegaly present RECTAL EXAM: Yes deferred Extremity: COMMON NORMALS: no clubbing, cyanosis or edema and no pedal edema Neuro: COMMON NORMALS: patient oriented x3 Discharge Data Studies Completed and Pending Completed Studies During Hospitalization Category Date Time Status CT head wo con* [id number] Urgent Cat Scan 02/05/22 15:43 Completed Pending at discharge Category Date Time Status Comprehensive Metabolic Panel AM LABS Lab 02/07/22 04:00 Ordered Comprehensive Metabolic Panel AM LABS Lab 02/08/22 04:00 Ordered Osmolality Serum Stat Lab 02/05/22 17:11 Received Radiology Impressions Head CT 02/05/22 15:43 IMPRESSION: Negative for acute intracranial abnormality. Laboratory Results WBC 8.8 10^3/uL (4.0-10.0) 02/05/22 16:05 RBC 6.93 10^6/uL (4.1-5.3) H 02/05/22 16:05 Hgb 16.0 g/dL (11.7-16.6) 02/05/22 16:05 Hct 51.8 % (42.0-52.0) 02/05/22 16:05 MCV 74.7 fl (80-94) L 02/05/22 16:05 MCH 23.1 pg (28.0-34.0) L 02/05/22 16:05 MCHC 30.9 g/dL (30.0-36.0) 02/05/22 16:05 RDW 15.2 % (12.1-15.1) H 02/05/22 16:05 Plt Count 223 10^3/cmm (130-400) 02/05/22 16:05 MPV 11.8 fL (7.4-10.4) H 02/05/22 16:05 Neut % (Auto) 70.7 % 02/05/22 16:05 Lymph % (Auto) 21.1 % 02/05/22 16:05 [place] % (Auto) 5.5 % 02/05/22 16:05 Eos % (Auto) 1.9 % 02/05/22 16:05 Baso % (Auto) 0.5 % 02/05/22 16:05 Neut # (Auto) 6.19 10^3/uL (1.8-7.7) 02/05/22 16:05 Lymph # (Auto) 1.9 10^3/uL (0.8-4.8) 02/05/22 16:05 [place] # (Auto) 0.5 10^3/uL (0.2-0.9) 02/05/22 16:05 Eos # (Auto) 0.2 10^3/uL (0.0-0.8) 02/05/22 16:05 Baso # (Auto) 0.0 10^3/uL (0.0-0.1) 02/05/22 16:05 Nucleated RBC % (auto) 0 % 02/05/22 16:05 Nucleated RBCs # 0.0 /100WBC 02/05/22 16:05 Specimen Type Arterial 02/05/22 17:10 Sample Site Radial, right 02/05/22 17:10 ABG pH 7.41 (7.35-7.45) 02/05/22 17:10 ABG pCO2 38.2 mmHg (35-45) 02/05/22 17:10 ABG pO2 82.8 mmHg (80.0-100.0) 02/05/22 17:10 ABG HCO3 24.4 mmol/L (22-26) 02/05/22 17:10 ABG Base Excess 0.1 mmol/L (-2.0-2.0) 02/05/22 17:10 [place] Test Pos 02/05/22 17:10 Hematocrit 51.6 % (42-52) 02/05/22 17:10 O2 Delivery Device Nc 02/05/22 17:10 O2 Liters/Min 2.0 % 02/05/22 17:10 Materials Specialist ID Stephane 02/05/22 17:10 Sodium 138 mmol/L (136-145) 02/06/22 05:24 Potassium 3.9 mmol/L (3.5-5.1) 02/06/22 05:24 Chloride 102 mmol/L (98-107) 02/06/22 05:24 Carbon Dioxide 27 mmol/L (22-29) 02/06/22 05:24 Anion Gap 12.9 (5-19) 02/06/22 05:24 BUN 18 mg/dL (6-20) 02/06/22 05:24 Creatinine 1.2 mg/dL (0.7-1.2) 02/06/22 05:24 GFR Calculation 75.2 mL/min (90-130) L 02/06/22 05:24 Glucose 269 mg/dL (65-115) H 02/06/22 05:24 POC Glucose 262 mg/dL (70-110) H 02/06/22 11:20 Estimat Average Glucose 217 02/06/22 05:24 Hemoglobin A1c 9.2 % (4.0-6.0) H 02/06/22 05:24 Calculated Osmolality 297 mOsm/kg (285-295) H 02/06/22 05:24 Lactic Acid 1.6 mmol/L (0.5-2.2) 02/06/22 05:24 Lactic Acid (Sepsis) 2.0 mmol/L (0.5-2.2) 02/05/22 21:05 Calcium 9.1 mg/dL (8.5-10.5) 02/06/22 05:24 Phosphorus 3.8 mg/dL (2.5-4.5) 02/06/22 05:24 Magnesium 2.1 mg/dL (1.7-2.3) 02/06/22 05:24 Total Bilirubin 0.4 mg/dL (0.15-1.2) 02/06/22 05:24 AST 20 U/L (0-40) 02/06/22 05:24 ALT 37 U/L (0-41) 02/06/22 05:24 Alkaline Phosphatase 100 IU/L (40-130) 02/06/22 05:24 Total Protein 6.3 g/dL (6.6-8.7) L 02/06/22 05:24 Albumin 3.9 g/dL (3.5-5.2) 02/06/22 05:24 Globulin 2.4 g/dL (1.3-4.6) 02/06/22 05:24 Triglycerides 245 mg/dL (0-150) H 02/06/22 05:24 Triglycerides Cancelled 02/06/22 05:24 Cholesterol 176 mg/dL (0-200) 02/06/22 05:24 Cholesterol Cancelled 02/06/22 05:24 LDL Cholesterol, Calc 99 mg/dL (50-129) 02/06/22 05:24 LDL Cholesterol, Calc Cancelled 02/06/22 05:24 HDL Cholesterol 28 mg/dL (60-100) L 02/06/22 05:24 HDL Cholesterol Cancelled 02/06/22 05:24 LDL/HDL Ratio 3.54 RATIO (0.00-3.22) H 02/06/22 05:24 LDL/HDL Ratio Cancelled 02/06/22 05:24 Cholesterol/HDL Ratio 6.29 mg/dL (1.0-5.00) H 02/06/22 05:24 Cholesterol/HDL Ratio Cancelled 02/06/22 05:24 TSH 1.20 uIU/mL (0.27-4.20) 02/05/22 16:05 Urine Color Straw (Yellow) 02/05/22 15:17 Urine Appearance Clear (CLEAR) 02/05/22 15:17 Urine pH 6 (5-7) 02/05/22 15:17 Ur Specific [place] 1.005 (1.005-1.030) 02/05/22 15:17 Urine Protein Neg (Negative) 02/05/22 15:17 Urine Glucose (UA) 4+ (Normal) H 02/05/22 15:17 Urine Ketones Negative (Negative) 02/05/22 15:17 Urine Blood Neg (Negative) 02/05/22 15:17 Urine Nitrate Negative (Negative) 02/05/22 15:17 Urine Bilirubin Neg (Negative) 02/05/22 15:17 Urine Urobilinogen Norm mg/dL (Negative) 02/05/22 15:17 Ur Leukocyte Esterase Negative (Negative) 02/05/22 15:17 Serum Ketones Negative (Negative) 02/05/22 17:11 Vitals Last Vital Signs Temp 98.6 F 02/05/22 20:00 Pulse 83 02/06/22 13:09 Resp 12 02/06/22 13:09 BP 140/90 02/06/22 13:09 Pulse Ox 99 02/06/22 13:09 Discharge Plan Discharge Patient Disposition: Xfer Inpatient Rehab Fac Condition: Stable Prescriptions: New metformin 500 mg tablet 500 mg PO BID 30 Days Qty: 60 3RF Continued atorvastatin 40 mg tablet 40 mg PO DAILY 0RF venlafaxine 75 mg capsule,extended release 24hr 75 mg PO DAILY 0RF olanzapine 10 mg tablet 10 mg PO BEDTIME 0RF clopidogrel 75 mg tablet 75 mg PO DAILY 0RF aspirin 81 mg tablet,delayed release (DR/EC) 81 mg PO DAILY 0RF tramadol 50 mg tablet 50 mg PO Q6H PRN (Reason: Pain) 0RF diltiazem HCl 120 mg capsule,extended release 24hr 120 mg PO DAILY 0RF hydrochlorothiazide 25 mg tablet 25 mg PO DAILY 0RF gabapentin 100 mg capsule 100 mg PO BID 0RF Held lisinopril 20 mg tablet 20 mg PO DAILY 0RF Hold Instructions: Resume on 02/09/22. Discharge Orders: Discharge Order (Routine); Ordered 02/06/22 Ordered By: Michael Mckenzie Referrals: William Kasper MD [Physician] - 2 weeks Discharge Diet: Diabetic Discharge Activity: Resume usual activity Patient Instructions: Opioid Safety Discharge Attestations Time Spent in Discharge Care*: less than 30 min Quality Metrics Clinical Quality Measures [ No reported AMI, CVA or VTE this stay] Coding Level of Care Code Acute Chg FW DC note Exam Detailed Diagnoses HTN (hypertension) I10 Hyperglycemia R73.9 Diabetes mellitus, new onset E11.9
--- NOTE | 2022-02-06 14:07 | PC.NURSE ---
Discharge instructions explained to patient including new medication Metformin and Referral with Dr. Kasper and f/u with PCP at [facility]. Patient signed D/C paperwork
--- NOTE | 2022-02-06 14:11 | PC.NURSE ---
This nurse spoke with Venkata from [facility], D/C instructions explained, staff to come and transport patient
--- NOTE | 2022-02-06 14:47 | PC.NURSE ---
Patient dillan at this time transported by claudia from [facility]
[2022-02-07 16:06] LABS: Osmolality Serum 311 mOsm/kg (278-305)
== END 2022-02-06 14:49 | disposition home or self-care (01) | DRG 638 ==
LOC: ER 17:30 → ICU 17:49
PROVIDERS: Admitting Provider Internal Medicine; Emergency Provider Emergency Medicine; Visit Provider Internal Medicine
DX: E11.65 Type 2 diabetes mellitus with hyperglycemia (principal); N17.9 Acute kidney failure, unspecified; F17.200 Nicotine dependence, unspecified, uncomplicated; Z86.73 Personal history of transient ischemic attack (TIA), and cerebral infarction without residual deficits; E11.22 Type 2 diabetes mellitus with diabetic chronic kidney disease; I12.9 Hypertensive chronic kidney disease with stage 1 through stage 4 chronic kidney disease, or unspecified chronic kidney disease; N18.9 Chronic kidney disease, unspecified; Z79.02 Long term (current) use of antithrombotics/antiplatelets; Z79.82 Long term (current) use of aspirin; Z79.891 Long term (current) use of opiate analgesic
CPT/HCPCS: 36415; 36416; 36600; 70450; 80048; 80053; 80061; 81003; 82009; 82803; 82962; 83036; 83605; 83735; 83930; 84100; 84443; 85025; 96372; 99285; J1650; J1815 ×2; J7030; J7050

== ENCOUNTER 2022-02-11 22:32 | Emergency (ER) | payer MEDICAID, SELFPAY ==
[2022-02-11 22:45] VITALS: BP 163/104; PULSE 88; RESP 16; TEMP 37.1; O2SAT 98
[2022-02-12 01:50] LABS: Add Urine Microscopic? NO; Charge for UA Resulting for Rev
[2022-02-12 01:57] LABS: Bilirubin Urine Neg (Negative); Blood Urine Neg (Negative); Glucose Urine UA 4+ (Normal); Ketones Urine 1+ (Negative); Leukocyte Esterase Urine Negative (Negative); Nitrate Urine Negative (Negative); Protein Urine Neg (Negative); Specific Gravity, Urine 1.015 (1.005-1.030); Urine Appearance Clear (CLEAR); Urine Color Yellow (Yellow); Urobilinogen Urine Norm (Negative); pH Urine 5 (5-7)
--- NOTE | 2022-02-12 01:58 | W.ED.GENADLT ---
HPI - General Adult General: Chief complaint: General Medical Stated complaint: back pain/weakness Time Seen by Provider: 02/12/22 01:58 History of Present Illness: Mr Morales is a 56-year-old gentleman with history of hypertension, history of stroke with residual deficits, and history of diabetes fairly recently diagnosed on oral agents who presents to the emergency department due to concern over mental status change, elevated blood glucose. Patient reports symptom onset earlier today. He endorses mild generalized malaise but largely has not noticed any symptoms. He does not have specific increased thirst, hunger, urination. He does note at times mild chest discomfort and cough. He reports compliance with his medication regimen. Overall course of symptoms has persisted. Intensity is mild to moderate. No other specific changes in health, exacerbating, or alleviating factors identified. Onset (ago): hour(s) Severity: mild Review of Systems General: Reports: 10 or more systems reviewed and unremarkable except in HPI and below PFSH ED PFSH: Medical History CVA (cerebral vascular accident) HTN (hypertension) Social History Smoking and tobacco status: current every day smoker Alcohol intake: former Physical Exam Const: COMMON NORMALS: patient oriented x3 and alert GENERAL APPEARANCE: cooperative and well developed HENMT: COMMON NORMALS: normocephalic and atraumatic HEAD & SCALP: normocephalic and atraumatic Eye: COMMON NORMALS: conjunctivae normal CONJUNCTIVA: Yes conjunctivae normal SCLERA: sclerae normal Neck/C-Spine: COMMON NORMALS: supple GENERAL: Yes trachea midline Resp: COMMON NORMALS: normal respiratory effort EFFORT & INSPECTION: Yes able to speak in complete sentences Cardio: COMMON NORMALS: regular rate and regular rhythm RATE: regular rate RHYTHM: regular rhythm GI: COMMON NORMALS: Soft to palpation PALPATION: Yes Soft to palpation and No Tenderness to palpation present (GI) PERCUSSION: normal to percussion Extremity: GENERAL: Yes normal exam except as noted and No edema Neuro: COMMON NORMALS: patient oriented x3, CN's II-XII intact bilaterally, moves all extremities, no focal motor deficits and no sensory deficits noted SENSORIUM/ORIENTATION: Yes alert and No Orientation impaired Psych: COMMON NORMALS: mental status grossly normal and Normal thought process present THOUGHT PROCESS: Normal thought process present Course ED course: - Patient was seen and evaluated by me at bedside - Patient placed on cardiac monitors, IV access obtained - Initial evaluation notable for exam as above. - Labs and xrays personally interpreted by me. EKG reviewed showing no STEMI. - Labs notable for no leukocytosis, mild hemoconcentration. Metabolic panel with minimal increasing anion gap and evidence of dehydration with mildly elevated creatinine. Delta troponin negative. Ketones and serum negative. - Fluids given - Improved repeat BMP - Imaging notable for no lobar consolidation or pneumothorax on chest x-ray. CT head negative for acute intracranial hemorrhage. - Upon serial reexamination after treatment the patient was improved - Based on patient history, evaluation, and testing as interpreted the most likely cause of the patient's condition is nonspecific symptoms of unclear etiology, patient continues to be hyperglycemic and plan to increase metformin. - The results of ED evaluation were discussed with the patient including prescriptions and/or symptomatic cares (if applicable) including appropriate and responsible use, followup plan, and return precautions. The patient verbalized understanding and felt safe for discharge. - Patient discharged in satisfactory condition. Note: Click bubbles or prepopulated holcomb in note writing are used for assistance with data collection and billing and are inherently more limited than narrative and other text portions of this note. Please use narrative for additional clinical history and defer to narrative/free test for any case of contradictory information. If information appears in only free text or click bubble it should be considered present or absent as reported. Please contact note junior underwriter for clarifications of clinical information or contradictory information. MDM is a brief summary, contradictory or erroneous seeming information should be clarified and full note should be reviewed. Vital Signs: Vital signs: Vital Signs Temperature 98.7 F 02/11/22 22:45 Pulse Rate 68 02/12/22 08:01 Respiratory Rate 16 02/12/22 05:26 Blood Pressure 134/86 02/12/22 08:01 Pulse Oximetry 97 02/12/22 08:01 MDM - General Adult Medical Decision Making 56-year-old gentleman with recent diagnosis of diabetes presenting to the emergency department due to generalized symptoms. No evidence of DKA and patient improved with IV fluids. Additional blood pressure control and metformin for outpatient management. Medical Records I reviewed the patient's medical records. Lab Data I reviewed the patient's lab results. : 02/11/22 22:41 05/21/22 05:20 Radiology Impressions Chest X-Ray 02/12/22 02:42 IMPRESSION: No acute cardiopulmonary abnormality. Head CT 02/12/22 03:09 IMPRESSION: No acute intracranial abnormality. Please note that MRI is more sensitive for early changes of acute ischemia. Laboratory Results WBC 8.7 10^3/uL (4.0-10.0) 02/11/22 22:41 RBC 7.19 10^6/uL (4.1-5.3) H 02/11/22 22:41 Hgb 16.5 g/dL (11.7-16.6) 02/11/22 22:41 Hct 53.2 % (42.0-52.0) H 02/11/22 22:41 MCV 74.0 fl (80-94) L 02/11/22 22:41 MCH 22.9 pg (28.0-34.0) L 02/11/22 22:41 MCHC 31.0 g/dL (30.0-36.0) 02/11/22 22:41 RDW 15.0 % (12.1-15.1) 02/11/22 22:41 Plt Count 211 10^3/cmm (130-400) 02/11/22 22:41 MPV 11.6 fL (7.4-10.4) H 02/11/22 22:41 Neut % (Auto) 64.5 % 02/11/22 22:41 Lymph % (Auto) 24.9 % 02/11/22 22:41 [place] % (Auto) 8.3 % 02/11/22 22:41 Eos % (Auto) 1.6 % 02/11/22 22:41 Baso % (Auto) 0.5 % 02/11/22 22:41 Neut # (Auto) 5.58 10^3/uL (1.8-7.7) 02/11/22 22:41 Lymph # (Auto) 2.2 10^3/uL (0.8-4.8) 02/11/22 22:41 [place] # (Auto) 0.7 10^3/uL (0.2-0.9) 02/11/22 22:41 Eos # (Auto) 0.1 10^3/uL (0.0-0.8) 02/11/22 22:41 Baso # (Auto) 0.0 10^3/uL (0.0-0.1) 02/11/22 22:41 Nucleated RBC % (auto) 0 % 02/11/22 22:41 Nucleated RBCs # 0.0 /100WBC 02/11/22 22:41 Sodium 134 mmol/L (136-145) L 02/12/22 05:20 Potassium 4.1 mmol/L (3.5-5.1) 02/12/22 05:20 Chloride 102 mmol/L (98-107) 02/12/22 05:20 Carbon Dioxide 20 mmol/L (22-29) L 02/12/22 05:20 Anion Gap 16.1 (5-19) 02/12/22 05:20 BUN 20 mg/dL (6-20) 02/12/22 05:20 Creatinine 1.2 mg/dL (0.7-1.2) 02/12/22 05:20 GFR Calculation 75.2 mL/min (90-130) L 02/12/22 05:20 Glucose 310 mg/dL (65-115) H 02/12/22 05:20 Calculated Osmolality 292 mOsm/kg (285-295) 02/12/22 05:20 Lactic Acid 1.4 mmol/L (0.5-2.2) 02/12/22 03:37 Calcium 7.4 mg/dL (8.5-10.5) L 02/12/22 05:20 Total Bilirubin 0.3 mg/dL (0.15-1.2) 02/11/22 22:41 AST 22 U/L (0-40) 02/11/22 22:41 ALT 48 U/L (0-41) H 02/11/22 22:41 Alkaline Phosphatase 135 IU/L (40-130) H 02/11/22 22:41 Troponin T Baseline 11 ng/L (0-15) 02/11/22 22:41 Troponin T 120 Minute 9.76 ng/L (0-15) 02/12/22 05:20 Delta Troponin T Not Reportable 02/12/22 05:20 Troponin T Hi Sens 6Hr 10.80 ng/L (0-15) 02/12/22 08:34 Troponin T Hi Sens 6Hr Delta -0.20 ng/L (0-12) L 02/12/22 08:34 Total Protein 7.6 g/dL (6.6-8.7) 02/11/22 22:41 Albumin 4.7 g/dL (3.5-5.2) 02/11/22 22:41 Globulin 2.9 g/dL (1.3-4.6) 02/11/22 22:41 Urine Color Yellow (Yellow) 02/12/22 00:24 Urine Appearance Clear (CLEAR) 02/12/22 00:24 Urine pH 5 (5-7) 02/12/22 00:24 Ur Specific [place] 1.015 (1.005-1.030) 02/12/22 00:24 Urine Protein Neg (Negative) 02/12/22 00:24 Urine Glucose (UA) 4+ (Normal) H 02/12/22 00:24 Urine Ketones 1+ (Negative) H 02/12/22 00:24 Urine Blood Neg (Negative) 02/12/22 00:24 Urine Nitrate Negative (Negative) 02/12/22 00:24 Urine Bilirubin Neg (Negative) 02/12/22 00:24 Urine Urobilinogen Norm mg/dL (Negative) 02/12/22 00:24 Ur Leukocyte Esterase Negative (Negative) 02/12/22 00:24 Serum Ketones Negative (Negative) 02/11/22 22:41 Discharge Plan Discharge Patient Disposition: Home Clinical Impression: HTN (hypertension), Hyperglycemia Condition: Stable Prescriptions: New metformin 1,000 mg tablet 1,000 mg PO BID Qty: 60 0RF lisinopril 20 mg tablet 20 mg PO BID Qty: 60 0RF Discontinued lisinopril 20 mg tablet 20 mg PO DAILY 0RF Hold Instructions: Resume on 02/09/22. metformin 500 mg tablet 500 mg PO BID 30 Days Qty: 60 3RF No Action atorvastatin 40 mg tablet 40 mg PO DAILY 0RF venlafaxine 75 mg capsule,extended release 24hr 75 mg PO DAILY 0RF olanzapine 10 mg tablet 10 mg PO BEDTIME 0RF clopidogrel 75 mg tablet 75 mg PO DAILY 0RF aspirin 81 mg tablet,delayed release (DR/EC) 81 mg PO DAILY 0RF tramadol 50 mg tablet 50 mg PO Q6H PRN (Reason: Pain) 0RF diltiazem HCl 120 mg capsule,extended release 24hr 120 mg PO DAILY 0RF hydrochlorothiazide 25 mg tablet 25 mg PO DAILY 0RF gabapentin 100 mg capsule 100 mg PO BID 0RF Discharge Orders: Discharge ED (Routine); Ordered 02/12/22 Ordered By: Fox Castellanos Discharge Diet: Usual diet Discharge Activity: Increase activity as tolerated Patient Instructions: Hypertension (ED), Diabetic Hyperglycemia (ED) Activity Restrictions/Additional Instructions: Thank you for visiting the emergency department. You were seen and evaluated for high blood pressure, mental status change, high blood sugar. We are pleased that you improved after IV fluids. I will increase your metformin to 1000 mg twice daily and increase your lisinopril to 20 mg twice daily. Please follow-up early next week for repeat labs and primary care follow-up. Return to the emergency department for anything that you are concerned about a feel needs emergency department evaluation Coding Level of Care Code ED Mechanical Facilities Technician for [facility] Taylor
[2022-02-12 02:09] LABS: Basophils % 0.5 %; Eosinophils # 0.1 10^3/uL (0.0-0.8); Eosinophils % 1.6 %; Hematocrit 53.2 % (42.0-52.0); Hemoglobin 16.5 g/dL (11.7-16.6); Lymphocytes # 2.2 10^3/uL (0.8-4.8); Lymphocytes % 24.9 %; Mean Corpuscular Hemoglobin 22.9 pg (28.0-34.0); Mean Platelet Volume 11.6 fL (7.4-10.4); Monocytes # 0.7 10^3/uL (0.2-0.9); Monocytes % 8.3 %; Neutrophils # 5.58 10^3/uL (1.8-7.7); Neutrophils % 64.5 %; Nucleated Red Blood Cells % 0 %; Platelet Count 211 10^3/cmm (130-400); Red Blood Count 7.19 10^6/uL (4.1-5.3); White Blood Count 8.7 10^3/uL (4.0-10.0)
[2022-02-12 02:11] LABS: Ketone (Acetest) Serum Negative (Negative)
[2022-02-12 02:18] LABS: Alanine Aminotransferase 48 U/L (0-41); Albumin Level 4.7 g/dL (3.5-5.2); Alkaline Phosphatase 135 IU/L (40-130); Anion Gap 19.4 (5-19); Aspartate Amino Transferase 22 U/L (0-40); Blood Urea Nitrogen 25 mg/dL (6-20); Calcium 9.7 mg/dL (8.5-10.5); Carbon Dioxide 22 mmol/L (22-29); Chloride 95 mmol/L (98-107); Globulin 2.9 g/dL (1.3-4.6); Glucose 398 mg/dL (65-115); Osmolality Calculated 295 mOsm/kg (285-295); Potassium 4.4 mmol/L (3.5-5.1); Sodium 132 mmol/L (136-145); Total Bilirubin 0.3 mg/dL (0.15-1.2); Total Protein 7.6 g/dL (6.6-8.7)
--- NOTE | 2022-02-12 02:42 | XRR_ITS ---
PROCEDURE INFORMATION: Exam: XR Chest Exam date and time: 02/12/2022 2:51 AM Age: 56 years old Clinical indication: Patient HX: Cough. TECHNIQUE: Imaging protocol: XR of the chest. Views: 1 view. COMPARISON: No relevant prior studies available. FINDINGS: Lungs: No focal airspace disease. Pleural spaces: Unremarkable. No pleural effusion. No pneumothorax. Heart/Mediastinum: Cardiomediastinal silhouette is within normal limits. Bones/joints: Unremarkable. XR/XR chest 1V portable [id number] IMPRESSION: No acute cardiopulmonary abnormality.
--- NOTE | 2022-02-12 02:42 | ECG_ITS ---
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 Measurements Intervals [place] Rate: 85 P: 56 HI: 158 QRS: 38 QRSD: 92 T: 39 QT: 348 QTc: 415 Interpretive Statements SINUS RHYTHM POSSIBLE LEFT ATRIAL ENLARGEMENT [-0.1mV P-WAVE IN V1/V2] Compared to ECG 01/14/2022 09:26:15 T-wave abnormality no longer present Electronically Signed On 02-12-2022 12:59:47 CDT by Dakota Martinez M.D. [id number]
[2022-02-12 03:04] LABS: Troponin(5th) Baseline 11 ng/L (0-15)
--- NOTE | 2022-02-12 03:09 | CTR_ITS ---
PROCEDURE INFORMATION: Exam: CT Head Without Contrast Exam date and time: 02/12/2022 3:25 AM Age: 56 years old Clinical indication: Patient HX: C/O general weakness. History of TIA. ; Additional info: AMS TECHNIQUE: Imaging protocol: Computed tomography of the head without contrast. Radiation optimization: All CT scans at this facility use at least one of these dose optimization techniques: automated exposure control; mA and/or kV adjustment per patient size (includes targeted exams where dose is matched to clinical indication); or iterative reconstruction. COMPARISON: CT head wo con* [id number] 02/05/2022 4:25 PM RADIATION DOSE METRICS: Total DLP (mGy-cm): 846.53 FINDINGS: Brain: Small remote infarct in the basal ganglia. Patchy hypoattenuation in the periventricular and subcortical white matter, consistent with chronic small vessel ischemia. No CT evidence of acute ischemia. No acute hemorrhage. No mass effect. Cerebral ventricles: No ventriculomegaly. Paranasal sinuses: Visualized sinuses are unremarkable. No fluid levels. Mastoid air cells: Visualized mastoid air cells are well aerated. Bones/joints: Unremarkable. No acute fracture. Soft tissues: Unremarkable. CT/CT head wo con* [id number] IMPRESSION: No acute intracranial abnormality. Please note that MRI is more sensitive for early changes of acute ischemia.
[2022-02-12 04:00] LABS: Lactic Sepsis W/Reflex 1.4 mmol/L (0.5-2.2)
[2022-02-12] MEDS: sodium chloride 0.9% 1,000 ML 999 ML IV (04:15)
[2022-02-12 05:26] VITALS: BP 124/73; PULSE 75; RESP 16; O2SAT 96
[2022-02-12 05:49] LABS: Anion Gap 16.1 (5-19); Blood Urea Nitrogen 20 mg/dL (6-20); Calcium 7.4 mg/dL (8.5-10.5); Carbon Dioxide 20 mmol/L (22-29); Chloride 102 mmol/L (98-107); Glomerular Filtration Rate 75.2 mL/min (90-130); Glucose 310 mg/dL (65-115); Osmolality Calculated 292 mOsm/kg (285-295); Potassium 4.1 mmol/L (3.5-5.1); Sodium 134 mmol/L (136-145)
[2022-02-12 05:50] LABS: Troponin 5 2HR 9.76 ng/L (0-15)
--- NOTE | 2022-02-12 07:58 | PC.NURSE ---
ATTEMPTED CALLING [facility] NO ANSWER. WILL ATTEMPT AGAIN LATER.
[2022-02-12 08:01] VITALS: BP 134/86; PULSE 68; O2SAT 97
--- NOTE | 2022-02-12 08:15 | PC.NURSE ---
REPORT CALLED TO BALJINDER AT [facility] SHE STATED THAT SOMEONE WOULD COME TO GET HIM [place].
--- NOTE | 2022-02-12 08:17 | PC.NURSE ---
WHILE AT [facility] PT IS RESTING QUIETLY WITH EYES CLOSED SUPINE IN NAD. PT HAS GOOD CHEST RISE AND FALL.
== END 2022-02-12 09:19 | disposition home or self-care (01) ==
PROVIDERS: Emergency Provider Emergency Medicine
DX: I10 Essential (primary) hypertension (principal); E11.65 Type 2 diabetes mellitus with hyperglycemia; F17.200 Nicotine dependence, unspecified, uncomplicated; Z79.84 Long term (current) use of oral hypoglycemic drugs; Z79.82 Long term (current) use of aspirin; Z79.02 Long term (current) use of antithrombotics/antiplatelets; Z79.899 Other long term (current) drug therapy
CPT/HCPCS: 36415; 70450; 71045; 80048; 80053; 81003; 82009; 83605; 84484; 85025; 93005; 96360; 96361; 99285; J7030